=== PATIENT | female | born 1975 | race Native Hawaiian/Other Pacific Islander ===

== ENCOUNTER 2016-05-12 14:44 | Outpatient (CLI) | payer OTHER ==
[~2016-05-12 14:44] MED LIST: ALLEGRA ALRG180 M1 PO; LOSA50TA PO; PROAIR HFA IN; RANI150T78 PO
== END 2016-05-12 15:44 | disposition home or self-care (01) ==
LOC: MAMMO 14:44
DX: Z12.31 Encounter for screening mammogram for malignant neoplasm of breast (principal)
CPT/HCPCS: G0202-TC

== ENCOUNTER 2019-03-27 15:30 | Outpatient (CLI) | payer OTHER ==
[2019-03-27 16:36] LABS: PLATELET COUNT 263 K/uL (152-353)
[2019-03-27 17:03] LABS: POTASSIUM 3.8 mmol/L (3.6-5.2)
== END 2019-03-27 20:12 | disposition home or self-care (01) ==
LOC: LABW 15:30
PROVIDERS: Nurse Practitioner Family
DX: L65.9 Nonscarring hair loss, unspecified (principal)
CPT/HCPCS: 36415; 80053; 82306; 82626; 82728; 83540; 83550; 84270; 84402; 84403; 84439; 84443; 85027; 86038; 86376

== ENCOUNTER 2020-02-20 08:15 | Outpatient (CLI) | payer OTHER | END 2020-02-20 23:56 | disposition home or self-care (01) | LOC: MAMMO 08:15 | PROVIDERS: ATTEND Internal Medicine | DX: Z12.31 Encounter for screening mammogram for malignant neoplasm of breast (principal) ==

== ENCOUNTER 2021-11-25 15:32 | Outpatient (CLI) | payer OTHER | END 2021-11-25 19:01 | disposition home or self-care (01) | LOC: CT 15:32 | PROVIDERS: ATTEND Physician Assistant | DX: R10.31 Right lower quadrant pain (principal); R10.33 Periumbilical pain | CPT/HCPCS: 36415; 82565; 84520; Q9963 ==

== ENCOUNTER 2022-01-04 08:50 | Outpatient (CLI) | payer OTHER | END 2022-01-04 18:56 | disposition home or self-care (01) | LOC: MAMMO 08:50 | PROVIDERS: ATTEND Obstetrics & Gynecology | DX: Z12.31 Encounter for screening mammogram for malignant neoplasm of breast (principal) ==